=== PATIENT | female | born 1950 ===

== ENCOUNTER 2021-05-01 16:39 | Emergency (ER) | payer SELFPAY ==
[~2021-05-01] VITALS: Ht 160 cm; Wt 68.0 kg
[2021-05-01] MEDS ORDERED: ALLEGRA ALLERGY60 MG PO (18:48)
[2021-05-01] MEDS ORDERED: Amoxicillin875 MG PO (18:48)
== END 2021-05-01 19:10 | disposition home or self-care (01) ==
LOC: ER 16:39
DX: H10.13 Acute atopic conjunctivitis, bilateral (principal); H66.92 Otitis media, unspecified, left ear; H72.92 Unspecified perforation of tympanic membrane, left ear; I10 Essential (primary) hypertension
CPT/HCPCS: 99282